=== PATIENT | male | born 2000 | race Caucasian/White ===

== ENCOUNTER 2023-05-30 13:47 | Emergency (ER) | payer SELFPAY ==
[2023-05-30 13:55] VITALS: BP 119/72; PULSE 73; RESP 16; TEMP 37.1; O2SAT 97; BMI 34.7
--- NOTE | 2023-05-30 14:05 | ED.NAVMDI1 ---
HPI - Nausea/Vomiting/Diarrhea General Chief complaint: Nausea/Vomiting/Diarrhea Stated complaint: dehydration Time Seen by Provider: 05/30/23 13:48 Source: patient History of Present Illness HPI Narrative: patient is a 22-year-old male who presents to the Emergency Room for a 15-16 hour history of nausea and vomiting. He denies diarrhea. He has had no objective fevers but reports feeling hot and cold. He has had no significant upper respiratory symptoms, he is continuing to urinate but believes his urine is more concentrated. No flank or back pain. He reports pain to the epigastrium. he is prescribed omeprazole for acid reflux. No sick contacts in the home. He denies any recent travel or antibiotics. He has not had any new or unusual foods or eating any new or different restaurants in the last several days. Related Data Home Medications Medication Instructions Recorded Confirmed omeprazole 40 mg capsule,delayed 40 mg PO DAILY 05/30/23 05/30/23 release sertraline 100 mg tablet 100 mg PO DAILY 05/30/23 05/30/23 Previous Rx's Medication Instructions Recorded ondansetron HCl 4 mg tablet 4 mg PO Q6H PRN nausea and 05/30/23 vomiting #20 tabs Allergies Allergy/AdvReac Type Severity Reaction Status Date / Time No Known Drug Allergies Allergy Verified 05/30/23 13:54 Review of Systems ROS Constitutional Reports: chills; Denies: fever Ears, nose, mouth, and throat Denies: throat pain or nasal congestion Cardiovascular Denies: chest pain Respiratory Denies: shortness of breath Gastrointestinal Reports: abdominal pain, nausea and vomiting; Denies: diarrhea Genitourinary Reports: decreased urine ouput; Denies: painful urination Musculoskeletal Denies: back pain Integumentary/Breast Denies: rash Neurological Denies: headache PFSH PFSH Social History Smoking status: Heavy tobacco smoker Exam Narrative Exam Narrative: Gen.: Awake, alert, in no distress Head: Normocephalic, atraumatic ENT: Moist mucous membranes Respiratory: No respiratory distress, lungs clear bilaterally Cardio: Regular rate and rhythm Gastrointestinal: Abdomen is soft, nondistended and mildly tender in the epigastrium with no guarding or rebound; no McBurney's tenderness Extremities: Moves extremities equally Psych: Normal mood and affect Neuro: No focal neuro deficit Skin: Warm, dry, intact Constitutional Vital Signs, click to edit/add: Last Vital Signs Temp 98.7 F 05/30/23 13:55 Pulse 73 05/30/23 13:55 Resp 16 05/30/23 13:55 BP 119/72 05/30/23 13:55 Pulse Ox 97 05/30/23 13:55 O2 Del Method Room Air 05/30/23 13:55 Course Vital Signs Vital signs: Vital Signs Temperature 98.7 F 05/30/23 13:55 Pulse Rate 73 05/30/23 13:55 Respiratory Rate 16 05/30/23 13:55 Blood Pressure 119/72 05/30/23 13:55 Pulse Oximetry 97 05/30/23 13:55 Oxygen Delivery Method Room Air 05/30/23 13:55 Temperature 98.7 F 05/30/23 13:55 Pulse Rate 73 05/30/23 13:55 Respiratory Rate 16 05/30/23 13:55 Blood Pressure 119/72 05/30/23 13:55 Pulse Oximetry 97 05/30/23 13:55 Oxygen Delivery Method Room Air 05/30/23 13:55 MDM - Nausea/Vomiting/Diarrhea MDM Narrative Medical decision making narrative: patient was treated with IV fluids, Zofran, Pepcid. He reports significant improvement was able to tolerate an oral challenge with no vomiting in the Emergency Room. Labs studies are unremarkable and he is discharged home with Zofran. Follow-up with PCP and return to the Emergency Room if symptoms change or worsen. Abdomen is soft and benign on recheck by attending physician Medical Records Attestation: I reviewed the patient's medical records. Lab Data Attestation: I reviewed the patient's lab results. Labs: Lab Results 05/30/23 Range/Units 14:00 WBC 10.0 (4.0-11.0) 10^3/uL RBC 4.80 (4.70-6.10) 10^6/uL Hgb 14.5 (14.0-18.0) g/dL Hct 43.0 (42.0-54.0) % MCV 89.6 (80.0-94.0) fL MCH 30.2 (25.9-34.0) pg MCHC 33.7 (29.9-35.2) g/dL RDW 12.2 (11.0-15.0) % Plt Count 249 (150-450) 10^3/uL MPV 11.1 (9.5-13.5) fL Neut % (Auto) 86.3 H (43.0-75.0) % Lymph % (Auto) 9.0 L (20.5-60.0) % [place] % (Auto) 4.4 (1.7-12.0) % Eos % (Auto) 0.0 L (0.9-7.0) % Baso % (Auto) 0.2 (0.2-2.0) % Neut # (Auto) 8.6 H (1.4-6.5) 10^3/uL Lymph # (Auto) 0.9 L (1.2-3.8) 10^3/uL [place] # (Auto) 0.4 (0.3-0.8) 10^3/uL Eos # (Auto) 0.0 (0.0-0.7) 10^3/uL Baso # (Auto) 0.0 (0.0-0.1) 10^3/uL Abs Immat Gran (auto) 0.01 (0.00-0.03) 10^3/uL Imm/Tot Granulo (auto) 0.1 (0.0-0.5) % Discharge Plan Discharge Chief Complaint: Nausea/Vomiting/Diarrhea Clinical Impression: Nausea and vomiting Patient Disposition: Home, Self-Care Time of Disposition Decision: 15:22 Condition: Good Mode of Transportation: Private Vehicle Prescriptions / Home Meds: New ondansetron HCl 4 mg tablet 4 mg PO Q6H PRN (Reason: nausea and vomiting) Qty: 20 0RF No Action omeprazole 40 mg capsule,delayed release(DR/EC) 40 mg PO DAILY sertraline 100 mg tablet 100 mg PO DAILY Instructions: Acute Nausea and Vomiting (ED) Stand Alone Forms: Portal Instructions Referrals: DARCIE GROVER [Primary Care Provider] - 1 week Discharge Date/Time: 05/30/23 15:36
[2023-05-30] MEDS: 0.9 % SODIUM CHLORIDE 1,000 ML 999 ML IV (14:19)
[2023-05-30] MEDS: ONDANSETRON PF 4 MG/2 ML VIAL IV (14:20)
[2023-05-30] MEDS: PANTOPRAZOLE SODIUM 40 MG VIAL IV (14:20)
[2023-05-30 14:26] LABS: Basophils Percent Auto 0.2 % (0.2-2.0); Hemoglobin 14.5 g/dL (14.0-18.0); Immature Granulocytes Abs Auto 0.01 10^3/uL (0.00-0.03); Immature Granulocytes Pct Auto 0.1 % (0.0-0.5); Lymphocytes Absolute Auto 0.9 10^3/uL (1.2-3.8); Mean Corpuscular HGB Conc 33.7 g/dL (29.9-35.2); Mean Corpuscular Hemoglobin 30.2 pg (25.9-34.0); Mean Corpuscular Volume 89.6 fL (80.0-94.0); Mean Platelet Volume 11.1 fL (9.5-13.5); Monocytes Absolute Auto 0.4 10^3/uL (0.3-0.8); Monocytes Percent Auto 4.4 % (1.7-12.0); Neutrophils Absolute Auto 8.6 10^3/uL (1.4-6.5); Neutrophils Percent Auto 86.3 % (43.0-75.0); Platelet Count 249 10^3/uL (150-450); Red Cell Distribution Width 12.2 % (11.0-15.0)
[2023-05-30 14:54] LABS: Alanine Aminotransferase 19 U/L (16-63); Albumin Level 4.3 g/dL (3.4-5.0); Alkaline Phosphatase 65 U/L (46-116); Anion Gap 12.6; Aspartate Amino Transferase 12 U/L (15-37); BUN Creatinine Ratio 11.2; Bilirubin Total 0.4 mg/dL (0.2-1.0); Calcium 9.9 mg/dL (8.5-10.1); Carbon Dioxide 29.4 mmol/L (21.0-32.0); Chloride 100 mmol/L (98-107); Estimated GFR (African America >60 (>=60); Estimated GFR (Non-African Ame >60 (>=60); Globulin 4.1 g/dL; Glucose 136 mg/dL (74-106); Sodium 138 mmol/L (136-145); Total Protein 8.4 g/dL (6.4-8.2)
[2023-05-30 15:09] VITALS: BP 132/76; PULSE 74; RESP 16; O2SAT 97
== END 2023-05-30 15:36 | disposition home or self-care (01) ==
PROVIDERS: Physician Assistant; Emergency Provider Emergency Medicine; PCP Family Medicine
DX: R11.2 Nausea with vomiting, unspecified (principal); K21.9 Gastro-esophageal reflux disease without esophagitis; Z79.899 Other long term (current) drug therapy; F17.210 Nicotine dependence, cigarettes, uncomplicated
CPT/HCPCS: 36415; 80053; 83690; 85025; 96374; 96375; 99284

== ENCOUNTER 2023-06-01 10:45 | Emergency (ER) | payer SELFPAY ==
[2023-06-01 10:55] VITALS: BP 117/67; PULSE 66; RESP 18; TEMP 36.8; O2SAT 96; BMI 34.7
--- NOTE | 2023-06-01 10:59 | ED.NAVMDI1 ---
HPI - Nausea/Vomiting/Diarrhea General Chief complaint: Nausea/Vomiting/Diarrhea Stated complaint: DEHYDRATION Time Seen by Provider: 06/01/23 10:54 History of Present Illness HPI Narrative: 22-year-old male presents for intermittent nausea and vomiting for two years. He smokes marijuana every day and has been told he has cannabinoid hyperemesis syndrome.no fever or hematemesis. No cough or chest pain or shortness of breath. He does not complain to me of pain. Related Data Home Medications Medication Instructions Recorded Confirmed omeprazole 40 mg capsule,delayed 40 mg PO DAILY 05/30/23 05/30/23 release sertraline 100 mg tablet 100 mg PO DAILY 05/30/23 05/30/23 Previous Rx's Medication Instructions Recorded ondansetron HCl 4 mg tablet 4 mg PO Q6H PRN nausea and 05/30/23 vomiting #20 tabs ondansetron 4 mg disintegrating 4 mg PO Q6H PRN nausea and 06/01/23 tablet vomiting #20 tabs Allergies Allergy/AdvReac Type Severity Reaction Status Date / Time No Known Drug Allergies Allergy Verified 06/01/23 11:01 Review of Systems ROS Narrative A ten point review of systems is negative except as noted above. PFSH PFSH Social History Smoking status: Current every day smoker Exam Narrative Exam Narrative: Nurses note and vital signs reviewed and patient is not hypoxic. General: The patient appears well and in no apparent distress. Patient is resting comfortably on cart. Skin: Warm, dry, no pallor noted. There is no rash noted. Head: Normocephalic, atraumatic Eye: Normal conjunctiva, no drainage Ears, Nose, Mouth, and Throat: oral mucosa is moist. Nares patent. Cardiovascular: Regular Rate and Rhythm Respiratory: Patient is in no distress, no accessory muscle use, lungs are clear to auscultation, no wheezing, rales or rhonchi Back: non-tender GI: soft and nontender Musculoskeletal: The patient has no evidence of calf tenderness, no pitting edema, symmetrical pulses noted bilaterally Neurological: A&O, normal speech Psychiatric: Cooperative Constitutional Vital Signs, click to edit/add: Last Vital Signs Temp 98.3 F 06/01/23 10:55 Pulse 66 06/01/23 10:55 Resp 18 06/01/23 10:55 BP 117/67 06/01/23 10:55 Pulse Ox 96 06/01/23 10:55 O2 Del Method Room Air 06/01/23 10:55 Course Vital Signs Vital signs: Vital Signs Temperature 98.3 F 06/01/23 10:55 Pulse Rate 66 06/01/23 10:55 Respiratory Rate 18 06/01/23 10:55 Blood Pressure 117/67 06/01/23 10:55 Pulse Oximetry 96 06/01/23 10:55 Oxygen Delivery Method Room Air 06/01/23 10:55 Temperature 98.3 F 06/01/23 10:55 Pulse Rate 66 06/01/23 10:55 Respiratory Rate 18 06/01/23 10:55 Blood Pressure 117/67 06/01/23 10:55 Pulse Oximetry 96 06/01/23 10:55 Oxygen Delivery Method Room Air 06/01/23 10:55 MDM - Nausea/Vomiting/Diarrhea MDM Narrative Medical decision making narrative: his workup is negative. He was encouraged to cease smoking marijuana. Findings are discussed thoroughly with the patient and his mother. Differential Diagnosis Differential diagnosis: Likely food poisoning, gastroenteritis, drug-induced nausea and vomiting and dehydration Lab Data Attestation: I reviewed the patient's lab results. Labs: Lab Results 06/01/23 Range/Units 11:15 WBC 8.4 (4.0-11.0) 10^3/uL RBC 4.72 (4.70-6.10) 10^6/uL Hgb 14.2 (14.0-18.0) g/dL Hct 42.4 (42.0-54.0) % MCV 89.8 (80.0-94.0) fL MCH 30.1 (25.9-34.0) pg MCHC 33.5 (29.9-35.2) g/dL RDW 12.0 (11.0-15.0) % Plt Count 242 (150-450) 10^3/uL MPV 10.9 (9.5-13.5) fL Neut % (Auto) 75.8 H (43.0-75.0) % Lymph % (Auto) 15.0 L (20.5-60.0) % [place] % (Auto) 8.5 (1.7-12.0) % Eos % (Auto) 0.2 L (0.9-7.0) % Baso % (Auto) 0.4 (0.2-2.0) % Neut # (Auto) 6.3 (1.4-6.5) 10^3/uL Lymph # (Auto) 1.3 (1.2-3.8) 10^3/uL [place] # (Auto) 0.7 (0.3-0.8) 10^3/uL Eos # (Auto) 0.0 (0.0-0.7) 10^3/uL Baso # (Auto) 0.0 (0.0-0.1) 10^3/uL Abs Immat Gran (auto) 0.01 (0.00-0.03) 10^3/uL Imm/Tot Granulo (auto) 0.1 (0.0-0.5) % Sodium 139 (136-145) mmol/L Potassium 3.8 (3.5-5.1) mmol/L Chloride 99 (98-107) mmol/L Carbon Dioxide 32.3 H (21.0-32.0) mmol/L Anion Gap 11.5 BUN 12.0 (7.0-18.0) mg/dL Creatinine 0.78 (0.70-1.30) mg/dL Est GFR ( Amer) >60 (>=60) Est GFR (Non-Af Amer) >60 (>=60) BUN/Creatinine Ratio 15.4 Glucose 113 H (74-106) mg/dL Calcium 9.6 (8.5-10.1) mg/dL Total Bilirubin 0.4 (0.2-1.0) mg/dL Direct Bilirubin 0.1 (0.0-0.2) mg/dL AST 12 L (15-37) U/L ALT 20 (16-63) U/L Alkaline Phosphatase 62 (46-116) U/L Total Protein 7.9 (6.4-8.2) g/dL Albumin 4.2 (3.4-5.0) g/dL Globulin 3.7 g/dL Albumin/Globulin Ratio 1.1 Lipase 177.0 (73.0-393.0) U/L Discharge Plan Discharge Chief Complaint: Nausea/Vomiting/Diarrhea Clinical Impression: Cannabinoid hyperemesis syndrome Patient Disposition: Home, Self-Care Time of Disposition Decision: 12:29 Condition: Good Mode of Transportation: Private Vehicle Prescriptions / Home Meds: New ondansetron 4 mg tablet,disintegrating 4 mg PO Q6H PRN (Reason: nausea and vomiting) Qty: 20 0RF No Action omeprazole 40 mg capsule,delayed release(DR/EC) 40 mg PO DAILY sertraline 100 mg tablet 100 mg PO DAILY ondansetron HCl 4 mg tablet 4 mg PO Q6H PRN (Reason: nausea and vomiting) Qty: 20 0RF Instructions: Acute Nausea and Vomiting (ED), Cannabis Use Disorder (ED) Stand Alone Forms: Portal Instructions Referrals: DARCIE GROVER [Primary Care Provider] - 1 week
[2023-06-01] MEDS: ONDANSETRON PF 4 MG/2 ML VIAL IV (11:22)
[2023-06-01] MEDS: 0.9 % SODIUM CHLORIDE 1,000 ML 1000 ML IV (11:22)
[2023-06-01 11:26] LABS: Basophils Percent Auto 0.4 % (0.2-2.0); Eosinophils Percent Auto 0.2 % (0.9-7.0); Hematocrit 42.4 % (42.0-54.0); Hemoglobin 14.2 g/dL (14.0-18.0); Immature Granulocytes Abs Auto 0.01 10^3/uL (0.00-0.03); Immature Granulocytes Pct Auto 0.1 % (0.0-0.5); Lymphocytes Absolute Auto 1.3 10^3/uL (1.2-3.8); Mean Corpuscular HGB Conc 33.5 g/dL (29.9-35.2); Mean Corpuscular Hemoglobin 30.1 pg (25.9-34.0); Mean Corpuscular Volume 89.8 fL (80.0-94.0); Mean Platelet Volume 10.9 fL (9.5-13.5); Monocytes Absolute Auto 0.7 10^3/uL (0.3-0.8); Monocytes Percent Auto 8.5 % (1.7-12.0); Neutrophils Absolute Auto 6.3 10^3/uL (1.4-6.5); Neutrophils Percent Auto 75.8 % (43.0-75.0); Platelet Count 242 10^3/uL (150-450); Red Blood Count 4.72 10^6/uL (4.70-6.10); White Blood Count 8.4 10^3/uL (4.0-11.0)
[2023-06-01 11:34] LABS: Alanine Aminotransferase 20 U/L (16-63); Albumin Globulin Ratio 1.1; Albumin Level 4.2 g/dL (3.4-5.0); Alkaline Phosphatase 62 U/L (46-116); Anion Gap 11.5; Aspartate Amino Transferase 12 U/L (15-37); BUN Creatinine Ratio 15.4; Bilirubin Direct 0.1 mg/dL (0.0-0.2); Bilirubin Total 0.4 mg/dL (0.2-1.0); Calcium 9.6 mg/dL (8.5-10.1); Carbon Dioxide 32.3 mmol/L (21.0-32.0); Chloride 99 mmol/L (98-107); Estimated GFR (African America >60 (>=60); Estimated GFR (Non-African Ame >60 (>=60); Globulin 3.7 g/dL; Glucose 113 mg/dL (74-106); Potassium 3.8 mmol/L (3.5-5.1); Sodium 139 mmol/L (136-145); Total Protein 7.9 g/dL (6.4-8.2)
== END 2023-06-01 12:31 | disposition home or self-care (01) ==
PROVIDERS: Emergency Provider Emergency Medicine; PCP Family Medicine
DX: R11.2 Nausea with vomiting, unspecified (principal); F12.90 Cannabis use, unspecified, uncomplicated; Z79.899 Other long term (current) drug therapy; F17.210 Nicotine dependence, cigarettes, uncomplicated
CPT/HCPCS: 36415; 80048; 80076; 83690; 85025; 96374; 99284